=== PATIENT | female | born 1975 | race Asian ===

== ENCOUNTER 2020-03-17 01:06 | Outpatient (CLI) | payer OTHER, SELFPAY ==
--- NOTE | 2020-03-17 | DI.US_ITS ---
EXAM: US OB 1ST TRIMESTER CLINICAL HISTORY: F/U PREV US,Z32.00,ENCOUNTER FOR SUSPECTED ECTOPIC TECHNIQUE: Ultrasound performed using standard protocol. COMPARISON: No exams were available for comparison FINDINGS: Ob ultrasound was performed utilizing 1st trimester protocol. There is heterogeneous echogenicity in an intrauterine gestational sac. Mean sac size is consistent with gestational age 7 weeks 2 days. There is a visualized yolk sac. Poorly defined pole seen. No cardiac activity observed. Note is made of 1.4 x 0.9 x 2.5 cm subchorionic hemorrhage. Ovaries are unremarkable in appearance except for an apparent involuting cyst of the left ovary. IMPRESSION: Findings consistent with demise as described above. DATA REPOSITORY:
== END 2020-03-17 01:26 ==
DX: O03.9 Complete or unspecified spontaneous abortion without complication
CPT/HCPCS: 76801

== ENCOUNTER 2025-06-16 22:10 | Emergency (ER) | payer OTHER, SELFPAY ==
[2025-06-16 22:14] VITALS: BP 178/119; PULSE 85; RESP 16; O2SAT 95
[2025-06-16] MEDS: Lidocaine 2% Multi-Dose 50 ML VIAL IJ (22:45)
--- NOTE | 2025-06-16 22:52 | DI.RAD_ITS ---
Exam(s) XR THUMB RT EXAM: XR THUMB RT CLINICAL HISTORY: fingertip laceration/partial avulsion. TECHNIQUE: 2D digital imaging was performed of the right finger. Three views were obtained. PA/AP, oblique, and lateral views were obtained. COMPARISON: No exams were available for comparison FINDINGS: BONES: No acute fracture is present. No bony destructive lesion is seen. JOINTS: No dislocation present. SOFT TISSUE: Normal. IMPRESSION: 1. No evidence of acute fracture or dislocation. 2. The preliminary [facility] report was reviewed. DATA REPOSITORY: RADIATION DOSE DELIVERED:
--- NOTE | 2025-06-16 22:58 | W.ED.GENAD ---
Discharge Plan Disposition Patient Disposition: Home Condition: Good Discharge Details Clinical Impression: Amputation of finger tip Primary Care Provider: Marti,Local ED Provider: Carrie Holt Home Meds and New Rx's Prescriptions: Continued atorvastatin 10 mg tablet 10 mg PO DAILY estradiol 0.05 mg/24 hr patch semiweekly 1 patch topical .twice weekly Patient Comments: APPLY 1 PATCH TOPICALLY TO THE SKIN 2 TIMES A WEEK progesterone micronized 200 mg capsule 200 mg PO .COMPLEX Patient Comments: TAKE 1 CAPSULE BY MOUTH AT NIGHT ON DAYS 1 TO 12 OF THE MONTH Rx Instructions: 200 mg orally take 1 capsule by mouth at night on days 1 to 12 of the month; estradiol 0.0375 mg/24 hr patch semiweekly 1 patch topical .twice weekly Patient Comments: APPLY 1 PATCH TOPICALLY TO THE SKIN 2 TIMES A WEEK Wegovy 0.25 mg/0.5 mL pen injector 1 mg SUBCUT Q7D Patient Comments: ADMINISTER 0.25 MG UNDER THE SKIN 1 TIME A WEEK aspirin 81 mg capsule 81 mg PO DAILY Discharge Instructions Instructions: Amputation of the Finger or Fingertip (DC) Additional Instructions: Xerform dressing to your wound; change daily. Okay to get wet when showering but do not soak or scrub Tylenol and ibuprofen over the counter for pain; follow the directions on the bottle. [place] [facility] will [place] to schedule an appointment for next week. If you do not hear from them tommorrow, please call [phone]. Return to the emergency department for new or woresning symptoms including fever, thick green or white discharge from your cut, redness extending down your thumb, increasing pain or inability to move your thumb, numbness that occurs after the lidocaine wears off, or if you have any other concerns. Stand Alone Forms: Portal Information Discharge Data Discharge Date/Time-TO BE ENTERED AT DEPARTURE: 06/17/25 01:31 HPI General Mode of arrival: ambulatory. Date/Time Provider Initiated Documentation: 06/16/25 22:16. Limitations to Documentation: no limitations. Information obtained by: patient. HPI Narrative: 49yo F presenting with right thumb laceration. Cut her finger while using a mandolin on potatoes about an hour and a half ago, bleeding has persisted since then. No numbness or tingling to her thumb, able to move it freely and it does not feel week. Unknown last tetanus booster; did recieve all routine childhood immunizations. Related Data Home Medications Medication Instructions Recorded Confirmed aspirin 81 mg capsule 81 mg PO DAILY 06/16/25 06/16/25 atorvastatin 10 mg tablet 10 mg PO DAILY 06/16/25 06/16/25 estradiol 0.0375 mg/24 hr 1 patch topical .twice weekly 06/16/25 06/16/25 semiweekly transdermal patch estradiol 0.05 mg/24 hr semiweekly 1 patch topical .twice weekly 06/16/25 06/16/25 transdermal patch progesterone micronized 200 mg 200 mg PO .COMPLEX 06/16/25 06/16/25 capsule semaglutide (weight loss) 0.25 1 mg subcut Q7D 06/16/25 06/16/25 mg/0.5 mL subcutaneous pen injector ([email or web address]) Allergies Allergy/AdvReac Type Severity Reaction Status Date / Time No Known Allergies Allergy Verified 06/16/25 22:26 General Stated Complaint: Laceration ELLEN: 3 Review of Systems Narrative: see HPI Exam Narrative Exam Narrative: General: Well appearing, well nourished, in no acute distress. Head: Normocephalic, atraumatic Neck: Trachea midline, Neck supple. Cardiac: No cyanosis. Resp: No respiratory distress. Speaking in full sentences. . Abd: Non-distended, Neurologic: Alert. Moves all extremities freely against gravity Extremities: Right thumb with shallow amputation to radial edge of fingertip involving pulp and nail, small vessel with persistent bleeding evident. No subungal hematoma. No involvement of lunela. 2pt discrimination ~5mm. Good strength and ROM. Course Vital Signs Vital signs: Vital Signs Pulse 85 06/16/25 22:14 Respiratory Rate 16 06/16/25 22:14 Blood Pressure 178/119 H 06/16/25 22:14 Pulse Oximetry 95 06/16/25 22:14 Pulse 85 06/16/25 22:14 Respiratory Rate 16 06/16/25 22:14 Blood Pressure 178/119 H 06/16/25 22:14 Blood Pressure Position Sitting 06/16/25 22:14 Pulse Oximetry 95 06/16/25 22:14 Oxygen Delivery Method Room Air 06/16/25 22:14 Oxygen Flow Rate 0 06/16/25 22:14 Pain Level 7 06/16/25 22:21 Procedure Laceration Laceration 1: Date of Procedure: 06/16/25 Time of procedure: 23:00 Provider that performed the procedure: Carrie Holt Patient Consented: Verbally Site: hand Side (If applicable): right (thumb, radial aspect) Description: other (partial amputation of pulp and nail) Local anesthetic: Lidocaine 2% Pre-repair:: wound explored and irrigated extensively Procedure Description/Note: Linear injury to radial aspect of distal right thumb with amputation of small amount of pulp and nail. Wound thoroughly irrigated and then soaked in normal saline. Persistent bleeding. Digital block performed wtih 2ml 2% lidocaine with good analgesia. Digital tourniquet applied and small actively bleeding vessel identified. Not amenable to attempted ligature and so moved to cautery with good effect. Dressed with non-adherent dressing. Medical Decision Making 49yo F presenting with right thumb small partial amputation of distal fingertip pulp and nail; occured while using a mandolin. Hypertensive on arrival, vital signs otherwise reassuring. Neurovascular intact on exam, does have persistent bleeding. Culprit vessel visualized and cauterized. Plain film independently reviewed; no fracture on my view, radiology read with no acute findings. [place] [facility] Carranza from plastics on for hand; advised followup in clinic next week, xeroform dressing daily. Repeat VS with improved BP. Tetanus booster given. Patient is not sure if she will still be in the area next week (may return home)- I advised her that if she is unable to see hand surgery before leaving she should followup locally and if having difficulty start with her PCP for referral. The importance of being seen by hand surgery within one week from today was stressed. Discharged home; discharge instructions and return precautions were reviewed with patient who verbalized understanding. All questions were answered and she is in full agreement with the plan. [facility] All Active Problems (Updated 06/17/25 @ 00:28 by Carrie Holt MD) Amputation of finger tip (Acute) Social History Smoking/Tobacco Use Status: Current-Occasional Tobacco Type: cigarettes Smoking risk assessment performed?: Yes Alcohol Intake: current Alcohol Intake frequency: a few times a week Alcohol type: wine and hard liquor Substance use type: does not use Do you feel safe at home: Yes Do you feel safe in your relationship?: Yes
--- NOTE | 2025-06-16 23:26 | DI.[facility]_ITS ---
PROCEDURE INFORMATION: Exam: XR Right Finger(s) Exam date and time: 06/16/2025 11:01 PM Age: 49 years old Clinical indication: Injury or trauma; Other: Laceration; Finger; Right; Injury date: 06/16/25; Injury details: Thumb sliced on mandolin TECHNIQUE: Imaging protocol: Radiologic exam of the right fingers. Views: Minimum 2 views. COMPARISON: No relevant prior studies available. FINDINGS: Bones/joints: Normal. Soft tissues: Normal. IMPRESSION: No acute findings. Dictated and Authenticated by: Christos Powell MD. Orderin Jonathon Butler MD
[2025-06-16 23:53] VITALS: BP 145/100; PULSE 74; RESP 16; TEMP 36.5; O2SAT 98
[2025-06-17] MEDS: Tetanus & Diphtheria Tox,ADULT 0.5 ML VIAL IM (00:35)
[2025-06-17 00:40] VITALS: RESP 16
== END 2025-06-17 01:31 | disposition home or self-care (01) ==
PROVIDERS: Emergency Provider Student in an Organized Health Care Education/Training Program
DX: S68.118A Complete traumatic metacarpophalangeal amputation of other finger, initial encounter (principal); W26.8XXA Contact with other sharp object(s), not elsewhere classified, initial encounter; Z23 Encounter for immunization
CPT/HCPCS: 90471; 90714; 99284; 73140; 99283; J2003